=== PATIENT | male | born 1995 | race Caucasian/White ===

== ENCOUNTER 2017-12-19 00:31 | Emergency (ER) | payer SELFPAY ==
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
[2017-12-19 01:30] VITALS: BP 112/71
== END 2017-12-19 01:32 | disposition home or self-care (01) ==
LOC: ER 00:54
DX: R20.0 Anesthesia of skin (principal); R20.2 Paresthesia of skin; M79.641 Pain in right hand
CPT/HCPCS: 99283

== ENCOUNTER 2017-12-20 18:48 | Emergency (ER) | payer SELFPAY ==
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
[2017-12-20 20:16] VITALS: BP 113/81
== END 2017-12-20 20:20 | disposition home or self-care (01) ==
LOC: ER 19:15
DX: R20.0 Anesthesia of skin (principal)
CPT/HCPCS: 99283

== ENCOUNTER 2018-03-29 10:23 | Emergency (ER) | payer SELFPAY ==
--- NOTE | 2018-03-29 10:30 | ER Report ---
History and Physical Time Seen By MD: 10:30 Hx. of Stated Complaint: PT REPORTS EATING AT [employer] IN [place] LAST NIGHT, NOW HAS ABD PAIN/N/V/D HPI/ROS CHIEF COMPLAINT: Nausea, vomiting, diarrhea, crampy abdominal pains HISTORY OF PRESENT ILLNESS: Patient is a 22-year-old male here with complaints of nausea and vomiting, diarrhea, crampy and diffuse abdominal pains since last evening after eating at [employer]. Patient reports that he has had constant symptoms since time of onset with coinciding dehydration. Denies fevers, chest pain, shortness of breath, headache, blurry vision, blood in the stools or urine. Patient denies taking medications at baseline and denies other medical problems. Patient is afebrile, hemodynamically stable at time of evaluation. REVIEW OF SYSTEMS: Constitutional: No fever, no chills. Eyes: No discharge. ENT: No sore throat. Cardiovascular: No chest pain, no palpitations. Respiratory: No cough, no shortness of breath. Gastrointestinal: + crampy diffuse abdominal pain, + nausea and vomiting, + diarrhea Genitourinary: No hematuria. Musculoskeletal: No back pain. Skin: No rashes. Neurological: No headache. Allergies: Coded Allergies: No Known Drug Allergies (Unverified , 03/29/18) Home Meds Active Scripts Ondansetron (ZOFRAN ODT) 4 Mg Tab.rapdis, 4 MG PO Q6H PRN for NAUSEA/VOMITING, #20 TAB.DAREN 0 Refills Prov:FLO MENDEZ DO 03/29/18 Tramadol Hcl (TRAMADOL HCL) 50 Mg Tablet, 50 MG PO Q6H PRN for PAIN, #12 TAB 0 Refills Prov:FLO MENDEZ DO 03/29/18 Constitutional Vital Sign - Last 24 Hours 03/29/18 03/29/18 03/29/18 03/29/18 10:26 10:30 10:45 11:00 Temp 97.9 Pulse 52 54 48 52 Resp 16 B/P (MAP) 117/84 115/73 (87) 93/62 (72) Pulse Ox 99 99 99 96 O2 Delivery Room Air 03/29/18 03/29/18 03/29/18 11:15 11:30 11:42 Pulse 77 73 69 Pulse Ox 89 90 Physical Exam General Appearance: The patient is alert, has no immediate need for airway protection and no signs of toxicity. Moderate distress secondary to discomfort Eyes: Pupils equal and round no pallor or injection. ENT, Mouth: Mucous membranes are moist. Respiratory: There are no retractions, lungs are clear to auscultation. Cardiovascular: Regular rate and rhythm. Gastrointestinal: Abdomen is soft and + diffusely mildly tender in all quadrants, no masses, bowel sounds normal. Neurological: No focal neuro deficits Skin: Warm and dry, no rashes. Musculoskeletal: Neck is supple non tender. Extremities are nontender, nonswollen and have full range of motion. DIFFERENTIAL DIAGNOSIS: After history and physical exam differential diagnosis was considered for abdominal pain including but not limited to appendicitis, cholecystitis, gastritis and urinary tract infection. Gastroenteritis, food poisoning Medical Decision Making Data Points Result Diagram: 03/29/18 1040 03/29/18 1040 Laboratory Hematology Test 03/29/18 10:40 03/29/18 11:30 Red Blood Count 5.48 M/uL (4.00-5.60) Mean Corpuscular Volume 87.4 fL (80.0-96.0) Mean Corpuscular Hemoglobin 29.8 pg (26.0-33.0) Mean Corpuscular Hemoglobin Concent 34.2 g/dL (32.0-36.0) Red Cell Distribution Width 13.5 % (11.5-14.5) Mean Platelet Volume 9.5 fL (7.2-11.1) Neutrophils (%) (Auto) 76.4 % (39.4-72.5) Lymphocytes (%) (Auto) 16.8 % (17.6-49.6) Monocytes (%) (Auto) 5.5 % (4.1-12.4) Eosinophils (%) (Auto) 0.8 % (0.4-6.7) Basophils (%) (Auto) 0.5 % (0.3-1.4) Nucleated RBC Relative Count (auto) 0.0 /100WBC Neutrophils # (Auto) 4.2 K/uL (2.0-7.4) Lymphocytes # (Auto) 0.9 K/uL (1.3-3.6) Monocytes # (Auto) 0.3 K/uL (0.3-1.0) Eosinophils # (Auto) 0.0 K/uL (0.0-0.5) Basophils # (Auto) 0.0 K/uL (0.0-0.1) Nucleated RBC Absolute Count (auto) 0.00 K/uL Sodium Level 139 mmol/L (137-145) Potassium Level 4.3 mmol/L (3.5-5.0) Chloride Level 103 mmol/L (98-107) Carbon Dioxide Level 27 mmol/L (22-30) Blood Urea Nitrogen 10 mg/dl (9-21) Creatinine 0.80 mg/dl (0.66-1.25) Glomerular Filtration Rate Calc > 60.0 Random Glucose 105 mg/dl (75-110) Calcium Level 9.8 mg/dl (8.4-10.2) Total Bilirubin 0.6 mg/dl (0.2-1.3) Aspartate Amino Transf (AST/SGOT) 20 U/L (0-35) Alanine Aminotransferase (ALT/SGPT) 20 U/L (0-56) Alkaline Phosphatase 99 U/L (0-126) C-Reactive Protein 0.8 mg/dl (<1.0) Total Protein 8.5 g/dl (6.3-8.2) Albumin 4.4 g/dl (3.5-5.0) Lipase 104 U/L (23-300) Urine Color Yellow Urine Clarity Clear Urine pH 8.0 pH (4.8-9.5) Urine Specific Reading 1.025 Urine Protein 30 mg/dL (NEGATIVE) Urine Glucose (UA) Negative mg/dL (NEGATIVE) Urine Ketones 20 mg/dL (NEGATIVE) Urine Blood Negative (NEGATIVE) Urine Nitrite Negative (NEGATIVE) Urine Bilirubin Negative (NEGATIVE) Urine Urobilinogen Negative mg/dL (0.2-1.9) Urine Leukocyte Esterase Negative (NEGATIVE) Urine RBC 1 /HPF (0-2/HPF) Urine WBC <1 /HPF (0-5/HPF) Urine Squamous Epithelial Cells None /LPF (</=FEW) Urine Bacteria Negative /HPF (NONE-FEW) Urine Mucus Few /HPF (NONE-FEW) Chemistry Test 03/29/18 10:40 03/29/18 11:30 White Blood Count 5.5 k/uL (4.5-11.0) Red Blood Count 5.48 M/uL (4.00-5.60) Hemoglobin 16.4 g/dL (14.0-18.0) Hematocrit 47.9 % (42.0-52.0) Mean Corpuscular Volume 87.4 fL (80.0-96.0) Mean Corpuscular Hemoglobin 29.8 pg (26.0-33.0) Mean Corpuscular Hemoglobin Concent 34.2 g/dL (32.0-36.0) Red Cell Distribution Width 13.5 % (11.5-14.5) Platelet Count 252 K/uL (150-450) Mean Platelet Volume 9.5 fL (7.2-11.1) Neutrophils (%) (Auto) 76.4 % (39.4-72.5) Lymphocytes (%) (Auto) 16.8 % (17.6-49.6) Monocytes (%) (Auto) 5.5 % (4.1-12.4) Eosinophils (%) (Auto) 0.8 % (0.4-6.7) Basophils (%) (Auto) 0.5 % (0.3-1.4) Nucleated RBC Relative Count (auto) 0.0 /100WBC Neutrophils # (Auto) 4.2 K/uL (2.0-7.4) Lymphocytes # (Auto) 0.9 K/uL (1.3-3.6) Monocytes # (Auto) 0.3 K/uL (0.3-1.0) Eosinophils # (Auto) 0.0 K/uL (0.0-0.5) Basophils # (Auto) 0.0 K/uL (0.0-0.1) Nucleated RBC Absolute Count (auto) 0.00 K/uL Glomerular Filtration Rate Calc > 60.0 Calcium Level 9.8 mg/dl (8.4-10.2) Total Bilirubin 0.6 mg/dl (0.2-1.3) Aspartate Amino Transf (AST/SGOT) 20 U/L (0-35) Alanine Aminotransferase (ALT/SGPT) 20 U/L (0-56) Alkaline Phosphatase 99 U/L (0-126) C-Reactive Protein 0.8 mg/dl (<1.0) Total Protein 8.5 g/dl (6.3-8.2) Albumin 4.4 g/dl (3.5-5.0) Lipase 104 U/L (23-300) Urine Color Yellow Urine Clarity Clear Urine pH 8.0 pH (4.8-9.5) Urine Specific Reading 1.025 Urine Protein 30 mg/dL (NEGATIVE) Urine Glucose (UA) Negative mg/dL (NEGATIVE) Urine Ketones 20 mg/dL (NEGATIVE) Urine Blood Negative (NEGATIVE) Urine Nitrite Negative (NEGATIVE) Urine Bilirubin Negative (NEGATIVE) Urine Urobilinogen Negative mg/dL (0.2-1.9) Urine Leukocyte Esterase Negative (NEGATIVE) Urine RBC 1 /HPF (0-2/HPF) Urine WBC <1 /HPF (0-5/HPF) Urine Squamous Epithelial Cells None /LPF (</=FEW) Urine Bacteria Negative /HPF (NONE-FEW) Urine Mucus Few /HPF (NONE-FEW) Urinalysis Test 03/29/18 11:30 Urine Color Yellow Urine Clarity Clear Urine pH 8.0 pH (4.8-9.5) Urine Specific Reading 1.025 Urine Protein 30 mg/dL (NEGATIVE) Urine Glucose (UA) Negative mg/dL (NEGATIVE) Urine Ketones 20 mg/dL (NEGATIVE) Urine Blood Negative (NEGATIVE) Urine Nitrite Negative (NEGATIVE) Urine Bilirubin Negative (NEGATIVE) Urine Urobilinogen Negative mg/dL (0.2-1.9) Urine Leukocyte Esterase Negative (NEGATIVE) Urine RBC 1 /HPF (0-2/HPF) Urine WBC <1 /HPF (0-5/HPF) Urine Squamous Epithelial Cells None /LPF (</=FEW) Urine Bacteria Negative /HPF (NONE-FEW) Urine Mucus Few /HPF (NONE-FEW) ED Course/Re-evaluation Clinical Indication for ER IV: Hydration, IV Access ED Course Patient is a 22-year-old male here with complaints of nausea, vomiting, diarrhea, diffuse crampy abdominal pain. Physical exam revealed a mildly tender abdomen in all quadrants with no peritoneal signs, rebound or guarding. Patient denied dark stools, red blood in the stools or urine. He did have reports of a small amount of blood in his vomitus which is likely secondary to Laura-Chance tear. Patient was hemodynamically stable, afebrile. There is no leukocytosis, electrolytes were within normal limits, urinalysis showed mild ketones consistent with the patient's clinical signs of dehydration. Patient was given 2 L of normal saline for hydration, Zofran, fentanyl and Toradol for symptom management. Inflammatory markers were negative. At this time, no imaging was indicated as patient's physical exam was benign, lab findings were unremarkable and suspicion for intra-abdominal infection or pathology was found to be much less likely. Patient was given prescription for Zofran and tramadol for symptom management outpatient. Patient tolerated by mouth intake Decision to Disposition Date: Mar 29, 2018 Decision to Disposition Time: 12:15 Depart Departure Latest Vital Signs Vital Signs Date Time Temp Pulse Resp B/P (MAP) Pulse Ox O2 Delivery O2 Flow Rate FiO2 03/29/18 11:42 69 03/29/18 11:30 90 03/29/18 11:00 93/62 (72) 03/29/18 10:26 97.9 16 Room Air Impression: Primary Impression: Abdominal pain Additional Impression: Nausea & vomiting Condition: Improved Disposition: HOME OR SELF-CARE New Scripts Ondansetron (ZOFRAN ODT) 4 Mg Tab.rapdis 4 MG PO Q6H PRN for NAUSEA/VOMITING, #20 TAB.DAREN 0 Refills Prov: FLO MENDEZ DO 03/29/18 Tramadol Hcl (TRAMADOL HCL) 50 Mg Tablet 50 MG PO Q6H PRN for PAIN, #12 TAB 0 Refills Prov: FLO MENDEZ DO 03/29/18 Patient Instructions: Abdominal Pain (ED) Additional Instructions: Please drink plenty of water. You may take 1 tablet of Zofran every 4-6 hours as needed for nausea and vomiting. You may take 1 tramadol every 6-8 hours as needed for breakthrough pain. Please do not drive or drink alcohol while on this medication as it may cause drowsiness. Please return immediately if you develop worsening abdominal pain, refractory nausea and vomiting, fevers, blood in your stools or urine. Problem Qualifiers FLO MENDEZ DO Mar 29, 2018 10:30
[2018-03-29] MEDS ORDERED: ONDANSETRON 4 MG/2 ML VIAL IVP ONE (10:40)
[2018-03-29] MEDS ORDERED: fentaNYL CITR 100 MCG/2 ML AMP IVP ONE (10:40)
[2018-03-29] MEDS ORDERED: NS(*) 0.9% 1000 ML BAG 1,000 ML IV ONE ×2 (10:40→11:45)
[2018-03-29 10:52] LABS: PLATELET COUNT, AUTOMATED 252 K/uL (150-450)
[2018-03-29] MEDS ORDERED: KETOROLAC 30 MG/ML VIAL IVP ONE (11:45)
[2018-03-29 12:00] VITALS: BP 99/76
[2018-03-29] MEDS ORDERED: ONDA4TAB PO (12:01)
[2018-03-29] MEDS ORDERED: TRAM-420 PO (12:01)
== END 2018-03-29 12:30 | disposition home or self-care (01) ==
LOC: ER 10:38
DX: R10.84 Generalized abdominal pain (principal); R11.2 Nausea with vomiting, unspecified
CPT/HCPCS: 81001; 83690; 85025; 86140; 96361; 96374; 96375; 99284; J1885; J2405; J3010; J7030; 82040; 82247; 82310; 82374; 82435; 82565; 82947; 84075; 84132; 84155; 84295; 84450; 84460; 84520

== ENCOUNTER 2018-04-28 03:46 | Emergency (ER) | payer SELFPAY ==
[~2018-04-28 03:46] MED LIST: ONDA4TAB PO; TRAM-420 PO
[2018-04-28 03:47] VITALS: BP 112/74
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
== END 2018-04-28 04:00 ==
LOC: ER 03:50
DX: F10.920 Alcohol use, unspecified with intoxication, uncomplicated (principal)
CPT/HCPCS: 99281

== ENCOUNTER 2018-08-08 12:26 | Emergency (ER) | payer OTHER ==
--- NOTE | 2018-08-08 12:36 | ER Report ---
History and Physical Time Seen By MD: 12:36 Hx. of Stated Complaint: PAST 2 WEEKS 3-4 NOSEBLEEDS PER DAY. FATIGUE AND LIGHTHEADEDNESS HPI/ROS CHIEF COMPLAINT: Nosebleeds HISTORY OF PRESENT ILLNESS: 22-year-old male patient presents to emergency room with complaint of nosebleeds. Patient states he's been getting several nosebleeds over the last 2 weeks. Patient states that he has not had any trauma to the nose recently. Although he does have a medical history of nasal fracture. Patient states that he's not had a cough, fevers, chills, nausea, vomiting or diarrhea. Patient states that he has been having significant amounts of bleeding over the last 2 weeks. He states that is very frequent. Patient states that he w as feeling lightheaded, having blurred vision and was concerned is because of the bloody noses. REVIEW OF SYSTEMS: Respiratory: No cough, no dyspnea. Cardiovascular: No chest pain, no palpitations. Gastrointestinal: No vomiting, no abdominal pain. Musculoskeletal: No back pain. Allergies: Coded Allergies: No Known Drug Allergies (Unverified , 03/29/18) Home Meds Active Scripts Amoxicillin/Pot Clav 875-125 Mg Tab (AUGMENTIN 875-125 TABLET) 1 Each Tablet, 1 TAB PO Q12H, #20 TAB Prov:AYAAN THIBODEAUX 08/08/18 Past Medical/Surgical History Patient has a past medical history of asthma, nasal fracture, epistaxis, occasional alcohol use. Patient denies any surgical history. Reviewed Nurses Notes: Yes Constitutional Vital Sign - Last 24 Hours 08/08/18 08/08/18 08/08/18 08/08/18 12:26 12:31 12:31 12:41 Temp 98.6 Pulse ??? 62 65 Resp 16 B/P (MAP) 139/87 139/87 (104) Pulse Ox 98 100 O2 Delivery Room Air 08/08/18 08/08/18 08/08/18 08/08/18 12:56 13:00 13:11 13:26 Pulse 65 59 64 B/P (MAP) 111/77 (88) Pulse Ox 93 93 95 08/08/18 08/08/18 13:30 13:41 Pulse 59 B/P (MAP) 108/78 (88) Pulse Ox 98 Physical Exam General Appearance: The patient is alert, has no immediate need for airway protection and no current signs of toxicity. ENT: Tympanic membranes are pearly-gutierrez, auditory canals are patent, mixed membranes are moist. Patient does have erythema to the mucous membranes of bilateral nares. Traces of old blood noted, no bleeding at this time. Respiratory: Chest is non tender, lungs are clear to auscultation. Cardiac: regular rate and rhythm Gastrointestinal: Abdomen is soft and non tender, no masses, bowel sounds normal. Musculoskeletal: Neck: Neck is supple and non tender. Extremities have full range of motion and are non tender. Skin: No rashes or lesions. DIFFERENTIAL DIAGNOSIS: After history and physical exam differential diagnosis was considered for sinusitis, nasal trauma, travel mucous membranes. Medical Decision Making Data Points Result Diagram: 08/08/18 1248 08/08/18 1248 Laboratory Hematology Test 08/08/18 12:48 Red Blood Count 5.22 M/uL (4.00-5.60) Mean Corpuscular Volume 87.9 fL (80.0-96.0) Mean Corpuscular Hemoglobin 29.8 pg (26.0-33.0) Mean Corpuscular Hemoglobin Concent 33.9 g/dL (32.0-36.0) Red Cell Distribution Width 13.5 % (11.5-14.5) Mean Platelet Volume 9.4 fL (7.2-11.1) Neutrophils (%) (Auto) 54.8 % (39.4-72.5) Lymphocytes (%) (Auto) 38.1 % (17.6-49.6) Monocytes (%) (Auto) 6.0 % (4.1-12.4) Eosinophils (%) (Auto) 0.5 % (0.4-6.7) Basophils (%) (Auto) 0.6 % (0.3-1.4) Nucleated RBC Relative Count (auto) 0.0 /100WBC Neutrophils # (Auto) 2.3 K/uL (2.0-7.4) Lymphocytes # (Auto) 1.6 K/uL (1.3-3.6) Monocytes # (Auto) 0.3 K/uL (0.3-1.0) Eosinophils # (Auto) 0.0 K/uL (0.0-0.5) Basophils # (Auto) 0.0 K/uL (0.0-0.1) Nucleated RBC Absolute Count (auto) 0.00 K/uL Sodium Level 137 mmol/L (137-145) Potassium Level 3.8 mmol/L (3.5-5.0) Chloride Level 103 mmol/L (98-107) Carbon Dioxide Level 26 mmol/L (22-30) Blood Urea Nitrogen 9 mg/dl (9-21) Creatinine 0.90 mg/dl (0.66-1.25) Glomerular Filtration Rate Calc > 60.0 Random Glucose 97 mg/dl (75-110) Calcium Level 9.4 mg/dl (8.4-10.2) Total Bilirubin 1.0 mg/dl (0.2-1.3) Aspartate Amino Transf (AST/SGOT) 33 U/L (0-35) Alanine Aminotransferase (ALT/SGPT) 27 U/L (0-56) Alkaline Phosphatase 84 U/L (0-126) Total Protein 8.0 g/dl (6.3-8.2) Albumin 4.7 g/dl (3.5-5.0) Chemistry Test 08/08/18 12:48 White Blood Count 4.2 k/uL (4.5-11.0) Red Blood Count 5.22 M/uL (4.00-5.60) Hemoglobin 15.5 g/dL (14.0-18.0) Hematocrit 45.9 % (42.0-52.0) Mean Corpuscular Volume 87.9 fL (80.0-96.0) Mean Corpuscular Hemoglobin 29.8 pg (26.0-33.0) Mean Corpuscular Hemoglobin Concent 33.9 g/dL (32.0-36.0) Red Cell Distribution Width 13.5 % (11.5-14.5) Platelet Count 220 K/uL (150-450) Mean Platelet Volume 9.4 fL (7.2-11.1) Neutrophils (%) (Auto) 54.8 % (39.4-72.5) Lymphocytes (%) (Auto) 38.1 % (17.6-49.6) Monocytes (%) (Auto) 6.0 % (4.1-12.4) Eosinophils (%) (Auto) 0.5 % (0.4-6.7) Basophils (%) (Auto) 0.6 % (0.3-1.4) Nucleated RBC Relative Count (auto) 0.0 /100WBC Neutrophils # (Auto) 2.3 K/uL (2.0-7.4) Lymphocytes # (Auto) 1.6 K/uL (1.3-3.6) Monocytes # (Auto) 0.3 K/uL (0.3-1.0) Eosinophils # (Auto) 0.0 K/uL (0.0-0.5) Basophils # (Auto) 0.0 K/uL (0.0-0.1) Nucleated RBC Absolute Count (auto) 0.00 K/uL Glomerular Filtration Rate Calc > 60.0 Calcium Level 9.4 mg/dl (8.4-10.2) Total Bilirubin 1.0 mg/dl (0.2-1.3) Aspartate Amino Transf (AST/SGOT) 33 U/L (0-35) Alanine Aminotransferase (ALT/SGPT) 27 U/L (0-56) Alkaline Phosphatase 84 U/L (0-126) Total Protein 8.0 g/dl (6.3-8.2) Albumin 4.7 g/dl (3.5-5.0) ED Course/Re-evaluation ED Course Patient is admitted and examined, history and physical were obtained. Differential diagnoses were considered. On examination lungs are clear, heart regular, abdomen soft nontender. Patient does have some erythema to bilateral mucous membranes and the nares. A CBC, CMP were done as patient is complaining of lightheadedness since having the bleeding. Patient is not anemic. If concerns with the bleeding going on just for the last 2 weeks that this could very well be a sinus infection. We'll go ahead and treat him with Augmentin. He is to follow-up with Dr. Guevara, ENT in the next 3-5 days if he has no improvement in his symptoms. Is my belief patient likely has a sinus infection, which is causing the mucous membranes very friable. Patient verbalized understanding and agreement with plan. Decision to Disposition Date: Aug 08, 2018 Decision to Disposition Time: 13:40 Depart Departure Latest Vital Signs Vital Signs Date Time Temp Pulse Resp B/P (MAP) Pulse Ox O2 Delivery O2 Flow Rate FiO2 08/08/18 13:41 59 98 08/08/18 13:30 108/78 (88) 08/08/18 12:31 98.6 16 Room Air Impression: Primary Impression: Sinusitis Condition: Improved Disposition: HOME OR SELF-CARE Referrals: FLETCHER GUEVARA JR, MD New Scripts Amoxicillin/Pot Clav 875-125 Mg Tab (AUGMENTIN 875-125 TABLET) 1 Each Tablet 1 TAB PO Q12H, #20 TAB Prov: AYAAN THIBODEAUX 08/08/18 Patient Instructions: Sinusitis (ED) Additional Instructions: Increase fluid intake. Get plenty of rest. Follow up with your primary care care provider in the next week. If we are not having any improvement in the next 3-5 days I would like you to follow up with Dr. Guevara, ENT. Return to the ER if condition worsens. Use Saline nose spray ([place]) to help moisten the mucus membranes. Problem Qualifiers Primary Impression: Sinusitis Sinusitis location: pansinusitis Chronicity: acute Recurrence: non- recurrent Qualified Codes: J01.40 - Acute pansinusitis, unspecified AYAAN THIBODEAUX Aug 08, 2018 12:36
[2018-08-08 12:55] LABS: PLATELET COUNT, AUTOMATED 220 K/uL (150-450)
[2018-08-08 13:30] VITALS: BP 108/78
[2018-08-08] MEDS ORDERED: AMOX-559 PO (13:41)
== END 2018-08-08 13:50 | disposition home or self-care (01) ==
LOC: ER 12:36
DX: J01.40 Acute pansinusitis, unspecified (principal)
CPT/HCPCS: 36415; 82040; 82247; 82310; 82374; 82435; 82565; 82947; 84075; 84132; 84155; 84295; 84450; 84460; 84520; 85025; 99281